=== PATIENT | male | born 1950 | race Caucasian/White ===

== ENCOUNTER 2017-08-18 14:21 | Outpatient (CLI) | payer BC ==
--- NOTE | 2017-08-18 17:53 | RAD ---
FRONTAL AND LATERAL IMAGING OF THE THORACIC SPINE: 08/18/17 COMPARISON: 06/16/17 HISTORY: Re-evaluate fracture following a fall. FINDINGS: Lateral swimmer's view demonstrates an intact cervicothoracic junction. A mid thoracic spine anterior wedge compression fracture is noted with approximately 45% loss of noemi tebral body height anteriorly, unchanged. This probably represents the T7 or T8 vertebral body. No n ew fractures are seen. IMPRESSION: Stable mid/lower thoracic spine anterior wedge compression fracture. POS: [facility]
== END 2017-08-18 14:22 | disposition home or self-care (01) ==
LOC: TBSIIMAG 14:21
PROVIDERS: ATTEND Neurological Surgery
DX: M48.56XA Collapsed vertebra, not elsewhere classified, lumbar region, initial encounter for fracture (principal)
CPT/HCPCS: 72072

== ENCOUNTER 2019-07-04 16:00 | Outpatient (CLI) | payer MEDICARE, OTHER | END 2019-07-04 16:01 | disposition home or self-care (01) | LOC: SLEEPLAB 16:00 | PROVIDERS: ATTEND Family Medicine | DX: G47.33 Obstructive sleep apnea (adult) (pediatric) (principal); R06.83 Snoring; G47.00 Insomnia, unspecified; I10 Essential (primary) hypertension | CPT/HCPCS: 95806 ==

== ENCOUNTER 2024-05-09 00:34 | Emergency (ER) | payer MEDICARE, OTHER ==
[2024-05-09 01:45] LABS: #Basophils 0.05 10x3/uL (0.0-0.2); %Basophils 0.4 % (0.0-1.0); %Eosinophils 5.8 % (0.0-10.0); %Lymphocytes 19.9 % (21.0-51.0); %Monocytes 9.4 % (0.0-10.0); %Neutrophils 64.2 % (42.0-75.0); Hematocrit 36.3 % (42.0-52.0); Hemoglobin 12.2 g/dL (14.0-18.0); Mean Corpuscular HGB CONC 33.6 g/dL (32.0-36.0); Mean Corpuscular Hemoglobin 32.3 pg (27.0-31.0); Mean Platelet Volume 8.7 fL (7.4-10.4); Platelet Count 300 10x3/uL (130-400); RBC Distribution Width 13.9 % (11.5-14.5); Red Blood Cell (RBC) Count 3.78 mill/uL (4.70-6.10)
[2024-05-09 01:59] LABS: ALT (SGPT) 14 U/L (8-55); AST (SGOT) 21 U/L (5-34); Albumin 3.2 g/dL (3.4-4.8); Alkaline Phosphatase 148 U/L (40-110); Anion Gap 15 mmol/L (10-20); BUN (Urea Nitrogen) 18 mg/dL (8.4-25.7); Bilirubin, Total 0.6 mg/dL (0.2-1.2); Calc. Creatinine Clearance 0 mL/min (70-130); Calcium 9.2 mg/dL (7.8-10.44); Carbon Dioxide 21 mmol/L (23-31); Chloride 107 mmol/L (98-107); Estimated GFR 73; Globulin 3.7 g/dL (2.4-3.5); Glucose 152 mg/dL (83-110); Potassium 4.7 mmol/L (3.5-5.1); Protein, Total 6.9 g/dL (5.8-8.1); Sodium 138 mmol/L (136-145)
[2024-05-09 05:01] LABS: Troponin I Less than 0.010 ng/mL (< 0.028)
== END 2024-05-09 03:30 | disposition home or self-care (01) ==
LOC: ERS 00:34
DX: I95.1 Orthostatic hypotension (principal); E86.0 Dehydration; I10 Essential (primary) hypertension; E11.9 Type 2 diabetes mellitus without complications; E78.5 Hyperlipidemia, unspecified; Z55.6 Problems related to health literacy
CPT/HCPCS: 36415; 71045; 80053; 84484; 85025; 93005; 94760